=== PATIENT | female | born 1965 | race African-American/Black ===

== ENCOUNTER 2024-02-21 21:13 | Inpatient (IN) | payer OTHER, MEDICAID ==
[~2024-02-21] VITALS: Ht 152.4 cm; Wt 54.1 kg
[2024-02-21 22:52] LABS: BASOPHILS % 0.2 % (0.0-2.0); HEMATOCRIT. 26.6 % (36.0-48.0); HEMOGLOBIN. 8.8 g/dL (12.0-16.0); LYMPHOCYTES % 21.5 % (20.0-50.0); MEAN CORPUSCULAR HEMOGLOBIN 28.7 pg (28.0-32.0); MEAN CORPUSCULAR HGB CONC 33.1 g/dL (31.0-37.0); MEAN CORPUSCULAR VOLUME 86.9 fL (81.0-99.0); MEAN PLATELET VOLUME 6.2 fl (7.4-10.4); MONOCYTES % 6.1 % (2.0-8.0); NEUTROPHILS % 72.2 % (40.0-76.0); PLATELET 519 x1000/uL (130-400); RED BLOOD CELL COUNT 3.06 mill/uL (4.2-5.4); WHITE BLOOD COUNT 9.6 x1000/uL (4.5-11.0)
[2024-02-21 22:56] LABS: ADD RBC MORPHOLOGY YES; DIFFERENTIAL COMMENT 1
[2024-02-21 23:03] LABS: CARBON DIOXIDE 24 mEq/L (21-32); CHLORIDE 106 mEq/L (98-107); POTASSIUM 4.5 mEq/L (3.5-5.1); SODIUM 139 mEq/L (136-145)
[2024-02-21 23:04] LABS: CALCIUM 9.1 mg/dL (8.7-10.4)
[2024-02-21 23:09] LABS: CREATININE 0.5 mg/dL (0.6-1.0); GLUCOSE 158 mg/dL (70-105); UREA NITROGEN BLOOD 22 mg/dL (9-23)
[2024-02-21 23:13] LABS: ETHANOL BLOOD < 10 mg/dL (<10)
[2024-02-21 23:31] LABS: PLATELET ESTIMATE INCREASED
[2024-02-21 23:32] LABS: ANISOCYTOSIS 3+
[2024-02-21 23:33] LABS: HYPOCHROMASIA 1+; OVALOCYTES 1+
[2024-02-21] MEDS: MORPHINE SULFATE 4 MG/ML INJ (FOR IV/IM USE) IV ONE (23:54)
[2024-02-22 01:22] LABS: TROPONIN I HIGH SENSITIVITY < 4 ng/L (3.0-34)
[2024-02-22] MEDS ORDERED: NALOXONE HCL 0.4MG/ML VIAL IV PRN (14:15)
[2024-02-22] MEDS: HYDROCODONE/ACETAMINOPHEN 10/325MG TABLET PO PRN (14:22)
[2024-02-22] MEDS ORDERED: DOCUSATE SODIUM 100MG CAPSULE PO PRN (16:15)
[2024-02-22] MEDS ORDERED: DEXTROSE 50% WATER 50ML SYRINGE IV PRN (16:15)
[2024-02-22] MEDS ORDERED: ONDANSETRON HCL 4MG/2ML INJ IV PRN (16:15)
[2024-02-22] MEDS ORDERED: CLONIDINE 0.1MG TABLET PO PRN (16:15)
[2024-02-22] MEDS ORDERED: IPRATROPIUM/ALBUTEROL 0.5-3(2.5)MG/3ML NEB HHN PRN (16:15)
[2024-02-22] MEDS: SODIUM CHLORIDE 0.9% 250 ML IV ONE (16:35)
[2024-02-22] MEDS: PANTOPRAZOLE SODIUM 40 MG/VIAL IV SCH (16:42)
[2024-02-22] MEDS: ACETAMINOPHEN 325MG TABLET PO PRN (16:44)
[2024-02-22] MEDS: SODIUM CHLORIDE 0.45% 1,000 ML IV SCH (16:48)
[2024-02-22] MEDS: BLOOD SUGAR DIAGNOSTIC STRIP TEST SCH (17:00)
[2024-02-22] MEDS: MIDODRINE HCL 5MG TABLET PO SCH (17:00)
[2024-02-22 17:38] LABS: BASOPHILS % 0.3 % (0.0-2.0); HEMOGLOBIN. 8.7 g/dL (12.0-16.0); MEAN CORPUSCULAR HEMOGLOBIN 28.5 pg (28.0-32.0); MEAN CORPUSCULAR HGB CONC 32.4 g/dL (31.0-37.0); MEAN CORPUSCULAR VOLUME 88.1 fL (81.0-99.0); MEAN PLATELET VOLUME 6.1 fl (7.4-10.4); MONOCYTES % 7.7 % (2.0-8.0); PLATELET 478 x1000/uL (130-400); RED BLOOD CELL COUNT 3.06 mill/uL (4.2-5.4); RED CELL DISTRIBUTION WIDTH 28.1 % (11.6-14.6); WHITE BLOOD COUNT 8.6 x1000/uL (4.5-11.0)
[2024-02-22 17:41] LABS: DIFFERENTIAL COMMENT 1
[2024-02-22 17:42] LABS: CARBON DIOXIDE 27 mEq/L (21-32); CHLORIDE 105 mEq/L (98-107); POTASSIUM 4.3 mEq/L (3.5-5.1); SODIUM 137 mEq/L (136-145)
[2024-02-22 17:43] LABS: ADD RBC MORPHOLOGY YES; CALCIUM 8.6 mg/dL (8.7-10.4)
[2024-02-22 17:44] LABS: PROTHROMBIN TIME 10.7 sec (9.6-11.0)
[2024-02-22 17:47] LABS: CREATININE 0.5 mg/dL (0.6-1.0)
[2024-02-22 17:48] LABS: GLUCOSE 93 mg/dL (70-105); UREA NITROGEN BLOOD 20 mg/dL (9-23)
[2024-02-22 17:49] LABS: ALANINE AMINOTRANSFERASE 34 IU/L (10-49); ASPARTATE AMINOTRANSFERASE 22 IU/L (<34)
[2024-02-22 17:50] LABS: ALBUMIN 3.5 g/dL (3.2-4.8); BILIRUBIN TOTAL 0.3 mg/dL (0.1-1.0); PROTEIN TOTAL 5.8 g/dL (6.0-8.3)
[2024-02-22 17:54] LABS: BILIRUBIN DIRECT < 0.1 mg/dL (<=3.0)
[2024-02-22] MEDS: INSULIN LISPRO 100 UNITS/ML SUBCUT SCH (18:20)
[2024-02-22 21:30] VITALS: BP 102/61; PULSE 77; PULSE 81; RESP 14; TEMP 36.418; TEMP 36.50292; O2SAT 99
[2024-02-23] VITALS: BP 121/79; PULSE 77; RESP 17; TEMP 36.44736; O2SAT 98
[2024-02-23 02:33] LABS: CLARITY URINE CLEAR (CLEAR); COLOR URINE YELLOW (YELLOW); GLUCOSE URINE NEGATIVE (NEGATIVE); KETONES URINE NEGATIVE (NEGATIVE); LEUKOCYTE ESTERASE URINE 3+ (NEGATIVE); NITRITE URINE NEGATIVE (NEGATIVE); OCCULT BLOOD URINE NEGATIVE (NEGATIVE); PH URINE 5.5 (4.5-8.0); PROTEIN URINE NEGATIVE (NEGATIVE); SPECIFIC GRAVITY URINE 1.016 (1.005-1.030); UROBILINOGEN URINE 0.2 E.U./dL (0.2-1.0)
[2024-02-23 02:41] LABS: *AMPHETAMINES SCREEN URINE NEGATIVE (NEGATIVE); *BARBITURATES SCREEN URINE NEGATIVE (NEGATIVE); *BENZODIAZEPINES SCREEN URINE NEGATIVE (NEGATIVE); *COCAINE SCREEN URINE NEGATIVE (NEGATIVE); CANNABINOID URINE SCREEN NEGATIVE (NEGATIVE); ECSTASY MDMA SCREEN URINE NEGATIVE (NEGATIVE); METHADONE URINE SCREEN NEGATIVE (NEGATIVE); OPIATES URINE SCREEN PRESUMPTIVE POSITIVE (NEGATIVE); PHENCYCLIDINE URINE SCREEN NEGATIVE (NEGATIVE)
[2024-02-23 03:28] LABS: RBC URINE 0-2 /hpf (0-2); SQUAMOUS EPITHELIAL CELL URINE NONE SEEN /lpf (RARE/1+); WBC URINE 15-25 /hpf (0-2)
[2024-02-23 03:31] LABS: BACTERIA URINE TRACE
[2024-02-23 04:00] VITALS: BP 119/88; PULSE 77; RESP 14; TEMP 36.50292; O2SAT 100
[2024-02-23 06:03] LABS: CHLORIDE 105 mEq/L (98-107); POTASSIUM 4.2 mEq/L (3.5-5.1); SODIUM 138 mEq/L (136-145)
[2024-02-23 06:04] LABS: CARBON DIOXIDE 27 mEq/L (21-32)
[2024-02-23 06:05] LABS: CALCIUM 9.1 mg/dL (8.7-10.4)
[2024-02-23 06:09] LABS: CREATININE 0.5 mg/dL (0.6-1.0); GLUCOSE 82 mg/dL (70-105); UREA NITROGEN BLOOD 19 mg/dL (9-23)
[2024-02-23 06:16] LABS: BASOPHILS % 0.1 % (0.0-2.0); LYMPHOCYTES % 36.3 % (20.0-50.0); MEAN CORPUSCULAR HEMOGLOBIN 28.7 pg (28.0-32.0); MEAN CORPUSCULAR HGB CONC 32.1 g/dL (31.0-37.0); MEAN CORPUSCULAR VOLUME 89.3 fL (81.0-99.0); MONOCYTES % 8.2 % (2.0-8.0); NEUTROPHILS % 55.4 % (40.0-76.0); PLATELET 441 x1000/uL (130-400); RED BLOOD CELL COUNT 3.13 mill/uL (4.2-5.4); RED CELL DISTRIBUTION WIDTH 27.3 % (11.6-14.6); WHITE BLOOD COUNT 8.2 x1000/uL (4.5-11.0)
[2024-02-23 06:31] LABS: DIFFERENTIAL COMMENT 1
[2024-02-23 08:00] VITALS: BP 110/68; PULSE 78; RESP 12; TEMP 36.89184; O2SAT 97
[2024-02-23 15:59] VITALS: BP 115/70; PULSE 68; RESP 13; TEMP 36.83628; O2SAT 98
[2024-02-23] MEDS: CEFTRIAXONE 1GM/50ML 50 ML IV SCH (16:44)
[2024-02-23 19:07] LABS: ALBUMIN 3.6 g/dL (3.2-4.8); PREALBUMIN 20.9 mg/dl (10.0-40.0)
[2024-02-23 20:00] VITALS: BP 101/70; PULSE 87; RESP 19; TEMP 36.89184; O2SAT 98
[2024-02-24] VITALS: BP 100/65; PULSE 70; RESP 17; TEMP 36.22512; O2SAT 95
[2024-02-24 04:00] VITALS: BP 120/85; PULSE 87; RESP 18; TEMP 36.78072; O2SAT 98
[2024-02-24 06:09] LABS: BASOPHILS % 0.1 % (0.0-2.0); HEMATOCRIT. 27.4 % (36.0-48.0); HEMOGLOBIN. 8.8 g/dL (12.0-16.0); LYMPHOCYTES % 20.7 % (20.0-50.0); MEAN CORPUSCULAR HEMOGLOBIN 28.3 pg (28.0-32.0); MEAN CORPUSCULAR HGB CONC 32.2 g/dL (31.0-37.0); MEAN CORPUSCULAR VOLUME 87.9 fL (81.0-99.0); MONOCYTES % 8.3 % (2.0-8.0); NEUTROPHILS % 70.9 % (40.0-76.0); PLATELET 388 x1000/uL (130-400); RED BLOOD CELL COUNT 3.12 mill/uL (4.2-5.4); RED CELL DISTRIBUTION WIDTH 28.1 % (11.6-14.6); WHITE BLOOD COUNT 8.5 x1000/uL (4.5-11.0)
[2024-02-24 06:10] LABS: CHLORIDE 103 mEq/L (98-107); POTASSIUM 3.8 mEq/L (3.5-5.1); SODIUM 137 mEq/L (136-145)
[2024-02-24 06:11] LABS: CALCIUM 9.3 mg/dL (8.7-10.4); CARBON DIOXIDE 26 mEq/L (21-32)
[2024-02-24 06:16] LABS: CREATININE 0.5 mg/dL (0.6-1.0); DIFFERENTIAL COMMENT 1; GLUCOSE 87 mg/dL (70-105); UREA NITROGEN BLOOD 12 mg/dL (9-23)
[2024-02-24 08:00] VITALS: BP 110/78; PULSE 69; RESP 13; TEMP 36.50292; O2SAT 99
[2024-02-24 12:00] VITALS: BP 110/71; PULSE 89; RESP 18; TEMP 36.78072; O2SAT 99
[2024-02-24 16:00] VITALS: BP 118/85; PULSE 104; RESP 14; TEMP 37.05852; O2SAT 96
[2024-02-24 20:00] VITALS: BP 118/85; PULSE 110; RESP 19; TEMP 36.78072; O2SAT 97
[2024-02-24] MEDS: MORPHINE SULFATE 2 MG/ML INJ (NOT FOR IM USE) IV NR (21:34)
[2024-02-25] VITALS: BP 111/68; PULSE 98; RESP 18; TEMP 36.22512; O2SAT 98
[2024-02-25 04:00] VITALS: BP 108/66; PULSE 102; RESP 19; TEMP 36.33624; O2SAT 97
[2024-02-25 08:00] VITALS: BP 114/81; PULSE 106; RESP 20; TEMP 36.6696; O2SAT 100
[2024-02-25] MEDS: MORPHINE SULFATE 15MG TABLET SR PO SCH (09:38)
[2024-02-25 12:00] VITALS: BP 102/77; PULSE 91; RESP 17; TEMP 36.6696; O2SAT 98
[2024-02-25 16:00] VITALS: BP 108/72; PULSE 97; RESP 21; TEMP 36.78072; O2SAT 97
[2024-02-25 20:02] VITALS: BP 119/82; PULSE 109; RESP 17; TEMP 36.72516; O2SAT 98
[2024-02-26] VITALS (8 sets, daily range): BP systolic 104–144; BP diastolic 70–92; PULSE 73–97; RESP 14–25; TEMP 36.44736–36.78072; O2SAT 95–98
[2024-02-27] VITALS: BP 99/69; PULSE 76; RESP 16; O2SAT 98
[2024-02-27 04:00] VITALS: BP 116/86; PULSE 96; RESP 20; TEMP 36.78072; O2SAT 96
[2024-02-27 08:00] VITALS: BP 110/75; PULSE 105; RESP 20; TEMP 36.61404; O2SAT 94
[2024-02-27 12:00] VITALS: BP 96/70; PULSE 91; RESP 18; TEMP 36.6696; O2SAT 96
[2024-02-27 16:00] VITALS: BP 96/70; PULSE 91; RESP 18; TEMP 36.6696; O2SAT 100
[2024-02-27 20:01] VITALS: BP 113/80; PULSE 101; RESP 19; TEMP 36.50292; O2SAT 96
[2024-02-27] MEDS: CEFEPIME 1GM/50ML 50 ML IV SCH (20:14)
[2024-02-27] MEDS: HYDROCODONE/ACETAMINOPHEN 10/325MG TABLET PO PRN (20:18)
[2024-02-27] MEDS: MORPHINE SULFATE 15MG TABLET SR PO SCH (22:13)
[2024-02-28] VITALS: BP 121/97; PULSE 98; RESP 17; TEMP 36.83628; O2SAT 96
[2024-02-28 04:00] VITALS: BP 124/88; PULSE 91; RESP 19; TEMP 36.72516; O2SAT 96
[2024-02-28 08:00] VITALS: BP 106/78; PULSE 85; RESP 16; TEMP 36.83628; O2SAT 98
[2024-02-28] MEDS ORDERED: NALOXONE HCL 0.4MG/ML VIAL IV PRN (11:15)
[2024-02-28 12:00] VITALS: BP 128/87; PULSE 92; RESP 17; TEMP 37.16964; O2SAT 96
[2024-02-28] MEDS: LORAZEPAM 2MG/ML INJ IV PRN (12:07)
[2024-02-28 16:00] VITALS: BP 129/97; PULSE 103; RESP 19; TEMP 36.6696; O2SAT 97
[2024-02-28] MEDS: POLYETHYLENE GLYCOL 3350 (17GM) 1 DOSE PACK PO SCH (17:51)
[2024-02-28 20:00] VITALS: BP 108/82; PULSE 114; RESP 20; TEMP 37.05852; O2SAT 98
[2024-02-28] MEDS: CEFEPIME 2GM/100ML 100 ML IV SCH (21:07)
[2024-02-29] VITALS: BP 122/80; PULSE 109; RESP 16; TEMP 36.9474; O2SAT 95
[2024-02-29 04:00] VITALS: BP 107/76; PULSE 104; RESP 18; TEMP 36.9474; O2SAT 93
[2024-02-29 08:00] VITALS: BP 126/99; PULSE 110; RESP 17; TEMP 36.72516; O2SAT 94
[2024-02-29 12:00] VITALS: BP 125/101; PULSE 106; RESP 21; TEMP 36.78072; O2SAT 95
[2024-02-29 16:00] VITALS: BP 154/89; PULSE 125; RESP 28; TEMP 37.16964; O2SAT 98
[2024-02-29 20:00] VITALS: BP 144/85; PULSE 115; RESP 24; TEMP 36.78072; O2SAT 97
[2024-03-01 04:00] VITALS: BP 140/92; PULSE 117; RESP 18; TEMP 37.00296; O2SAT 98
[2024-03-01 08:00] VITALS: BP 123/75; PULSE 120; RESP 20; TEMP 36.83628; O2SAT 95
[2024-03-01 12:00] VITALS: BP 121/76; PULSE 140; RESP 17; TEMP 36.44736; O2SAT 97
[2024-03-01 16:00] VITALS: BP 132/69; RESP 18; TEMP 36.22512; O2SAT 97
[2024-03-01 20:00] VITALS: BP 112/78; PULSE 127; RESP 20; TEMP 37.503; O2SAT 95
[2024-03-01] MEDS: MORPHINE SULFATE 2 MG/ML INJ (NOT FOR IM USE) IV PRN (22:23)
[2024-03-02] VITALS: BP 132/69; PULSE 141; RESP 18; TEMP 36.22512; O2SAT 97
[2024-03-02 04:00] VITALS: BP 132/69; PULSE 141; RESP 18; TEMP 36.22512; O2SAT 97
[2024-03-02 08:00] VITALS: BP 114/71; PULSE 133; RESP 20; TEMP 38.892; O2SAT 99
[2024-03-02] MEDS: ACETAMINOPHEN 325MG TABLET PO PRN (09:40)
[2024-03-02 12:00] VITALS: BP 95/60; PULSE 121; RESP 20; TEMP 37.7808; O2SAT 99
[2024-03-02 12:15] LABS: CHLORIDE 100 mEq/L (98-107); POTASSIUM 3.4 mEq/L (3.5-5.1); SODIUM 131 mEq/L (136-145)
[2024-03-02 12:16] LABS: CARBON DIOXIDE 24 mEq/L (21-32)
[2024-03-02 12:22] LABS: CREATININE 0.5 mg/dL (0.6-1.0); GLUCOSE 163 mg/dL (70-105); UREA NITROGEN BLOOD 10 mg/dL (9-23)
[2024-03-02 12:23] LABS: ALANINE AMINOTRANSFERASE 11 IU/L (10-49); ALBUMIN 3.3 g/dL (3.2-4.8)
[2024-03-02 12:24] LABS: ASPARTATE AMINOTRANSFERASE 23 IU/L (<34); BILIRUBIN DIRECT 0.1 mg/dL (<=3.0); BILIRUBIN TOTAL 0.4 mg/dL (0.1-1.0); PROTEIN TOTAL 5.6 g/dL (6.0-8.3)
[2024-03-02 12:32] LABS: HEMATOCRIT. 25.9 % (36.0-48.0); HEMOGLOBIN. 8.3 g/dL (12.0-16.0); MEAN CORPUSCULAR HEMOGLOBIN 28.1 pg (28.0-32.0); MEAN CORPUSCULAR HGB CONC 31.9 g/dL (31.0-37.0); MEAN CORPUSCULAR VOLUME 87.9 fL (81.0-99.0); PLATELET 325 x1000/uL (130-400); RED BLOOD CELL COUNT 2.95 mill/uL (4.2-5.4); RED CELL DISTRIBUTION WIDTH 25.2 % (11.6-14.6); WHITE BLOOD COUNT 13.5 x1000/uL (4.5-11.0)
[2024-03-02 12:39] LABS: DIFFERENTIAL COMMENT 1
[2024-03-02 16:00] VITALS: BP 128/82; PULSE 126; RESP 20; TEMP 37.39188; O2SAT 99
[2024-03-02 17:06] LABS: PLATELET ESTIMATE NORMAL
[2024-03-02 20:00] VITALS: BP 123/66; PULSE 140; RESP 18; TEMP 39.22536; O2SAT 98
[2024-03-03] VITALS (7 sets, daily range): BP systolic 90–143; BP diastolic 48–88; PULSE 109–131; RESP 18–20; TEMP 36.114–37.89192; O2SAT 94–99
[2024-03-03 07:10] LABS: CARBON DIOXIDE 24 mEq/L (21-32); CHLORIDE 101 mEq/L (98-107); POTASSIUM 3.4 mEq/L (3.5-5.1); SODIUM 131 mEq/L (136-145)
[2024-03-03 07:12] LABS: CALCIUM 9.2 mg/dL (8.7-10.4)
[2024-03-03 07:15] LABS: CREATININE 0.4 mg/dL (0.6-1.0)
[2024-03-03 07:16] LABS: GLUCOSE 106 mg/dL (70-105); UREA NITROGEN BLOOD 10 mg/dL (9-23)
[2024-03-03 07:18] LABS: HEMOGLOBIN. 7.6 g/dL (12.0-16.0); MEAN CORPUSCULAR HEMOGLOBIN 28.1 pg (28.0-32.0); MEAN CORPUSCULAR HGB CONC 31.8 g/dL (31.0-37.0); MEAN CORPUSCULAR VOLUME 88.3 fL (81.0-99.0); MEAN PLATELET VOLUME 6.8 fl (7.4-10.4); PLATELET 325 x1000/uL (130-400); RED BLOOD CELL COUNT 2.71 mill/uL (4.2-5.4); RED CELL DISTRIBUTION WIDTH 25.1 % (11.6-14.6); WHITE BLOOD COUNT 12.3 x1000/uL (4.5-11.0)
[2024-03-03 07:31] LABS: DIFFERENTIAL COMMENT 1
[2024-03-03] MEDS: POTASSIUM CHLORIDE 20MEQ TABLET SR PO NR (13:12)
[2024-03-03 18:12] LABS: ANISOCYTOSIS 2+; NUCLEATED RED BLOOD CELLS 2 /100 WBC; PLATELET ESTIMATE NORMAL
[2024-03-03] MEDS: MORPHINE SULFATE 4 MG/ML INJ (FOR IV/IM USE) IV PRN (23:20)
[2024-03-04] VITALS (8 sets, daily range): BP systolic 92–129; BP diastolic 55–82; PULSE 99–124; RESP 18–20; TEMP 36.22512–36.78072; O2SAT 96–99
[2024-03-04] MEDS: DILTIAZEM HCL 30MG TABLET PO SCH (13:36)
[2024-03-04] MEDS ORDERED: NALOXONE HCL 0.4MG/ML VIAL IV PRN (19:45)
[2024-03-04] MEDS ORDERED: LORAZEPAM 0.5MG TABLET PO PRN (21:00)
[2024-03-04] MEDS ORDERED: LORAZEPAM 2MG/ML INJ IV PRN (21:30)
== END 2024-03-04 22:01 | disposition hospice, inpatient (51) | DRG 850 ==
LOC: ER 21:13 → 3WST 02-22 21:18 → 6WST 03-01 09:58
PROVIDERS: ADMIT Internal Medicine; ATTEND Internal Medicine
PROC: 0KBP0ZZ Excision of Left Hip Muscle, Open Approach (ICD-10-PCS; principal; 2024-02-25)
PROC: 0KBN0ZZ Excision of Right Hip Muscle, Open Approach (ICD-10-PCS; 2024-02-25)
PROC: 5A09357 Assistance with Respiratory Ventilation, Less than 24 Consecutive Hours, Continuous Positive Airway Pressure (ICD-10-PCS; 2024-03-03)
PROC: 5A0935A Assistance with Respiratory Ventilation, Less than 24 Consecutive Hours, High Flow/Velocity Cannula (ICD-10-PCS; 2024-03-03)
DX: G89.3 Neoplasm related pain (acute) (chronic) (principal); L89.94 Pressure ulcer of unspecified site, stage 4; C79.51 Secondary malignant neoplasm of bone; C50.919 Malignant neoplasm of unspecified site of unspecified female breast; N39.0 Urinary tract infection, site not specified; D64.9 Anemia, unspecified; Z20.822 Contact with and (suspected) exposure to COVID-19; R73.9 Hyperglycemia, unspecified; R74.01 Elevation of levels of liver transaminase levels; Z85.3 Personal history of malignant neoplasm of breast
CPT/HCPCS: 36415; 71045; 80048; 80076; 80305; 80320; 81003; 82040; 82962; 83880; 84134; 84145; 84484; 85025; 87077; 87186; 87426; 93005; 97161; 97166; 99285; C1893; J0692; J0696; J1815; J2060; J2270; J2470; G0480